=== PATIENT | female | born 1985 | race Caucasian/White ===

== ENCOUNTER 2023-01-28 18:15 | Emergency (ER) | payer SELFPAY ==
[~2023-01-28] VITALS: Ht 167.6 cm; Wt 86.2 kg
[2023-01-28 19:30] VITALS: BP 105/89
== END 2023-01-28 19:32 | disposition home or self-care (01) ==
LOC: EDSEX 18:15 → ER 18:15
DX: R00.0 Tachycardia, unspecified (principal); Z88.8 Allergy status to other drugs, medicaments and biological substances
CPT/HCPCS: 99282